=== PATIENT | female | born 1955 | race Caucasian/White ===

== ENCOUNTER → 2020-11-18 15:52 | Outpatient (CLI) | payer MEDICARE, SELFPAY ==
--- NOTE | ~2020-11-18 | MM_ITS ---
EXAMINATION: 2 HISTORY: Screening mammogram TECHNIQUE: Craniocaudal and mediolateral oblique 3-D tomosynthesis images were obtained and synthetic 2-D images were generated. CAD analysis was submitted and interpreted. COMPARISON: 08/30/2013, 06/26/2012 bilateral digital screening mammogram examinations BREAST PARENCHYMAL COMPOSITION: There are scattered areas of fibroglandular density. FINDINGS: Stable benign intramammary lymph node in the upper outer quadrant of the right breast. Ther e is no evidence of suspicious mass, calcification, or architectural distortion to suggest malignancy in either breast. There has been no suspicious interval change. IMPRESSION: 1. No mammographic evidence of malignancy. 2. Recommend routine screening mammography in one year. BI-RADS Category 1: Negative Reviewed, dictated and finalized at location A. TECHNICIAN
== END ==
PROVIDERS: PCP Family Medicine; Visit Provider Family Medicine
DX: Z12.31 Encounter for screening mammogram for malignant neoplasm of breast (principal)
CPT/HCPCS: 77063; 77067

== ENCOUNTER → 2021-04-06 10:28 | Outpatient (CLI) | payer MEDICARE, SELFPAY ==
--- NOTE | ~2021-04-06 | DEXA_ITS ---
Bone Density Report Name: Adela Dawkins Age: 65 Sex: Female Ethnicity: White Date of : 1955 Indication: postmenopausal; screening for osteoporosis; parental hip fracture; height loss; prior fracture; Referring Provider: SIS MENDIOLA Study: Bone densitometry was performed. Exam Date: April 06, 2021 Accession number: [id number] Bone Density: Region BMD T-score Z-score Classification AP Spine (L1-L4) 1.332 2.6 4.4 Normal Femoral Neck (Left) 0.695 -1.4 0.1 Osteopenia Total Hip (Left) 0.982 0.3 1.6 Normal Femoral Neck (Right) 0.686 -1.5 0.1 Osteopenia Total Hip (Right) 0.987 0.4 1.6 Normal Total Hip Mean 0.985 0.4 1.6 Normal World Health Organization criteria for BMD impression classify patients as: Normal (T-score at or above -1.0), Osteopenia (T-score between -1.0 and -2.5), or Osteoporosis (T-score at or below -2.5). 10-year Fracture Risk: FRAX not reported because: Prior hip or vertebral fracture Previous Exams: Region Exam Age BMD T-score BMD Change BMD Change Date g/cm2 vs Baseline vs Previous AP Spine(L1-L4) 04/06/2021 65 1.332 2.6 0.075 -0.014 05/17/2011 55 1.345 2.7 0.089 0.089 04/09/2007 51 1.256 1.9 Total Hip(Left) 04/06/2021 65 0.982 0.3 -0.165* -0.098* 05/17/2011 55 1.080 1.1 -0.067* -0.067* 04/09/2007 51 1.147 1.7 Total Hip(Right) 04/06/2021 65 0.987 0.4 -0.168* -0.080* 05/17/2011 55 1.067 1.0 -0.088* -0.088* 04/09/2007 51 1.155 1.7 *Denotes significance at 95% confidence level, LSC for AP Spine = 0.022 g/cm2, LSC for Total Hip = 0.027 g/cm2 Clinical Information Provided by Patient: Have had a previous hip or vertebral fracture Has had a low trauma fracture Parent has had a hip fracture Has used the following medications: Vitamin D, Calcium Patient maximum height was 66 Menopause Age: 57 No regular weight bearing exercise Onset of menses at age 13 Number of children 2 Impression: The patient has low bone mass, based on the Right Femoral Neck T-score. The patient has risk factors, including: parental hip fracture, previous fracture. The BMD for the Total Hip(Left) decreased, changing by -0.098 since the last DXA exam. The BMD for the Total Hip(Right) decreased, changing by -0.080 since the last DXA exam. Discussion: INCREASED RISK OF FRACTURE DUE TO HISTORY OF FRACTURE.
== END ==
PROVIDERS: PCP Family Medicine; Visit Provider Family Medicine
DX: Z78.0 Asymptomatic menopausal state (principal); M85.852 Other specified disorders of bone density and structure, left thigh; M85.851 Other specified disorders of bone density and structure, right thigh
CPT/HCPCS: 77080